=== PATIENT | male | born 1990 | race African-American/Black ===

== ENCOUNTER 2017-04-27 12:19 | Emergency (ER) | payer OTHER ==
[~2017-04-27] VITALS: Ht 193 cm; Wt 104.0 kg
[2017-04-27 12:30] VITALS: Ht 193 cm; Wt 104.0 kg
[2017-04-27] MEDS ORDERED: LIDOCAINE 1% (MDV) 20 ML INJ SC ONE (13:30)
[2017-04-27] MEDS ORDERED: HYDROCODONE/APAP (5/325) TAB PO ONE (13:30)
[2017-04-27] MEDS ORDERED: IBUPROFEN 600 MG TAB PO ONE (13:30)
[2017-04-27] MEDS ORDERED: LIDOCAINE 4% CR TOP ONE (13:30)
[2017-04-27] MEDS ORDERED: DOXY100T20 PO (14:20)
[2017-04-27] MEDS ORDERED: ACET1TAB40 PO (14:20)
[2017-04-27] MEDS ORDERED: NEOMYC/POLYMYX/BACIT 0.9 GM OINT TOP ONE (14:30)
--- NOTE | 2017-04-27 14:35 | ERD ---
ER Documentation Chief Complaint Date/Time DATE: 04/27/17 TIME: 14:33 Chief Complaint rt thumb pain x 3 days HPI This 26-year-old male presents with right thumb pain redness and swelling. He believes it started due to biting his nails. He has had this in the past was drained with warm soaks by history. Denies any fevers, vomiting, shortness of breath or chest pain ROS All systems reviewed and are negative except as per history of present illness. Medications Home Meds Active Scripts Acetaminophen with Codeine (Acetaminophen-Cod #3 Tablet) 1 Each Tablet, 1 TAB PO Q6H Y for PAIN, #7 TAB Prov:RAMEZ SANCHEZ MD 04/27/17 Doxycycline Hyclate* (Doxycycline Hyclate*) 100 Mg Tablet.dr, 100 MG PO BID for 7 Days, TAB Prov:RAMEZ SANCHEZ MD 04/27/17 Allergies Allergies: Coded Allergies: No Known Allergy (Unverified , 04/27/17) PMhx/Soc Medical and Surgical Hx: pt denies Medical Hx, pt denies Surgical Hx History of Surgery: No Anesthesia Reaction: No Hx Neurological Disorder: No Hx Respiratory Disorders: No Hx Cardiac Disorders: No Hx Psychiatric Problems: No Hx Miscellaneous Medical Probl: No Hx Alcohol Use: No Hx Substance Use: No Hx Tobacco Use: No Smoking Status: Never smoker Physical Exam Vitals Vital Signs Date Time Temp Pulse Resp B/P Pulse Ox O2 Delivery O2 Flow Rate FiO2 04/27/17 12:30 98.1 72 18 139/91 99 Physical Exam Const: [] Alert, doa-ago-[id number] per Head: Atraumatic Eyes: Normal Conjunctiva ENT: Normal External Ears, Nose and Mouth. Neck: Full range of motion..~ No meningismus. Resp: Clear to auscultation bilaterally Cardio: Regular rate and rhythm, no murmurs Abd: Soft, non tender, non distended. Normal bowel sounds Skin: No petechiae or rashes. There is some swelling and redness and tenderness on the paronychial area of the right thumb. There is no bony tenderness or deformities or signs of ischemia or deficits per Back: No midline or flank tenderness Ext: No cyanosis, or edema Neur: Awake and alert Psych: Normal Mood and Affect Results 24 hrs Current Medications Medications (Trade) Dose Ordered Sig/Yoanna Route PRN Reason Start Time Stop Time Status Last Admin Dose Admin Lidocaine (Lmx 4% Plus) 1 applic ONCE ONCE TOP 04/27/17 13:30 04/27/17 13:31 DC 04/27/17 13:34 Lidocaine (Xylocaine 1% (Mdv) 20 ml) 20 ml ONCE ONCE SC 04/27/17 13:30 04/27/17 13:31 DC Acetaminophen/ Hydrocodone Bitart (Union (5/325)) 1 tab ONCE ONCE PO 04/27/17 13:30 04/27/17 13:31 DC 04/27/17 13:34 Ibuprofen (Motrin) 600 mg ONCE ONCE PO 04/27/17 13:30 04/27/17 13:31 DC 04/27/17 13:34 Neomycin/ Polymyxin/ Bacitracin (Neosporin (Ud Pkt)) 1 applic ONCE ONCE TOP 04/27/17 14:30 04/27/17 14:31 DC Procedures/MDM Patient was given Union 5 mg by mouth for pain. Patient presents with a paronychia of the right thumb without signs or symptoms to suggest foreign body , fracture, dislocation, osteomyelitis. Right thumb was prepped with Betadine and LMX was applied for topical anesthesia. 18-gauge needle was used to unroofed the paronychia. Positive pus was expressed and patient tolerated procedure well and the wound was dressed. Patient was discharged home with prescription of doxycycline and Tylenol Motrin 6 for warm soaks. Return for recurrent redness, fevers, new worsening symptoms Departure Diagnosis: Primary Impression: Paronychia Laterality: right Qualified Code: L03.011 - Paronychia, right Condition: Stable Patient Instructions: Paronychia Additional Instructions: Warm soaks at home. recheck for worsening redness, swelling, new symptoms. RAMEZ SANCHEZ MD Apr 27, 2017 14:35
== END 2017-04-27 14:54 | disposition home or self-care (01) ==
LOC: FTE 12:19
DX: L03.011 Cellulitis of right finger (principal)
CPT/HCPCS: 99284

== ENCOUNTER 2017-11-17 15:09 | Inpatient (IN) | END 2017-11-19 11:47 | disposition home or self-care (01) | DRG 494 ==